=== PATIENT | female | born 1945 | race Caucasian/White ===

== ENCOUNTER 2017-02-04 15:35 | Inpatient (IN) | payer OTHER ==
[~2017-02-04] VITALS: Ht 149.9 cm; Wt 79.4 kg
[~2017-02-04 15:35] MED LIST: ACEBUTCAFT PO; ADVIL100 MG PO; ALBU90OI INH; ASPI325 PO; ASPI500 PO; ATEN25 PO; ATEN50 PO; ATOR40TA PO; BISA5EC PO; BUTASPCAF PO; CALCAVITD PO; CALCIUM DAILY; CARV6.25 PO; CLOP75 PO; CODBUTACEC PO; CODBUTASA PO; CODGUAEL PO; COLC.6 PO; Cipro500 MG PO; DESV50 PO; DEXL60CA3 PO; DIAZ5; DIAZ5 PO; ESTR2 PO; FAMO20 PO; FENT50TP TOP; FIORINAL-COD 31 EACH PO; FLUC150A PO; HYDR1TAB94 PO; IBUP600 PO; LEVFLO500 PO; LISI5 PO; LORA.5 PO; LORA1 PO; MEDR5 PO; METPRE4DP PO; METR500 PO; MIRALAX17 GM PO; MORP15ER PO; MORP30 PO; MORP30ER PO; MULVITMIND PO; OMEP20ER PO; OXYACE5T PO; OXYC5 PO; Omeprazole20 M1; PROG100 PO; Percocet 5-3251 EACH PO; Percocet 7.5-31 EACH PO; Prednisone20 MG PO; QUET100 PO; QUET200 PO; Senna8.6 MG PO; TRAM50 PO; Zofran Odt4 MG PO; Zofran Odt8 MG SL
[2017-02-09] MEDS ORDERED: Vitamin B Comple1 EA PO (16:07)
[2017-02-09] MEDS ORDERED: FIORINAL-COD 31 EACH PO (16:08)
[2017-02-12 05:04] LABS: BASOPHILS ABSOLUTE AUTO 0.05 K/mm3 (0.00-0.23); BASOPHILS PERCENT AUTO 0 % (0-2); EOSINOPHILS ABSOLUTE AUTO 0.23 K/mm3 (0.00-0.68); EOSINOPHILS PERCENT AUTO 2 % (0-6); Hematocrit 26.6 % (33.0-51.0); Hemoglobin 8.5 g/dL (11.5-16.0); IMMATURE GRAN ABSOLUTE AUTO 0.07 K/mm3 (0.00-0.10); IMMATURE GRAN PERCENT AUTO 1 % (0-1); LYMPHOCYTES ABSOLUTE AUTO 2.67 K/mm3 (0.84-5.20); LYMPHOCYTES PERCENT AUTO 19 % (21-46); MONOCYTES ABSOLUTE AUTO 1.33 K/mm3 (0.16-1.47); MONOCYTES PERCENT AUTO 9 % (4-13); Mean Corpuscular HGB 29.8 pg (26.0-34.0); Mean Corpuscular Volume 93 fL (80-100); NEUTROPHILS ABSOLUTE AUTO 9.88 K/mm3 (1.96-9.15); NEUTROPHILS PERCENT AUTO 69 % (41-73); Platelet Count 229 K/mm3 (150-400); RDW Coefficient Variation 15.6 % (11.7-14.2); RDW Standard Deviation 53.3 fL (35.1-46.3); Red Blood Cell Count 2.85 M/mm3 (3.80-5.20); White Blood Cell Count 14.23 K/mm3 (4.00-11.30)
[2017-02-12 05:39] LABS: Anion Gap 8 mmol/L (6-16); Blood Urea Nitrogen 18 mg/dL (8-24); CO2, Blood 25 mmol/L (21-32); Calcium, Blood 8.5 mg/dL (8.5-10.1); Chloride, Blood 102 mmol/L (98-108); Glomerular Filtration Rate >60 (60-); Glucose, Blood 134 mg/dL (70-99); Magnesium, Blood 1.6 mg/dL (1.6-2.4); Potassium, Blood 3.9 mmol/L (3.5-5.5); Sodium, Blood 135 mmol/L (136-145)
[2017-02-13 08:53] LABS: BASOPHILS ABSOLUTE AUTO 0.03 K/mm3 (0.00-0.23); BASOPHILS PERCENT AUTO 0 % (0-2); EOSINOPHILS ABSOLUTE AUTO 1.01 K/mm3 (0.00-0.68); EOSINOPHILS PERCENT AUTO 9 % (0-6); Hematocrit 25.6 % (33.0-51.0); Hemoglobin 8.5 g/dL (11.5-16.0); IMMATURE GRAN ABSOLUTE AUTO 0.05 K/mm3 (0.00-0.10); IMMATURE GRAN PERCENT AUTO 0 % (0-1); LYMPHOCYTES ABSOLUTE AUTO 2.37 K/mm3 (0.84-5.20); LYMPHOCYTES PERCENT AUTO 21 % (21-46); MONOCYTES ABSOLUTE AUTO 0.89 K/mm3 (0.16-1.47); MONOCYTES PERCENT AUTO 8 % (4-13); Mean Corpuscular HGB 30.4 pg (26.0-34.0); Mean Corpuscular HGB Conc 33.2 g/dL (31.5-36.5); Mean Corpuscular Volume 91 fL (80-100); Mean Platelet Volume 9.7 fL (9.1-12.4); NEUTROPHILS ABSOLUTE AUTO 7.04 K/mm3 (1.96-9.15); NEUTROPHILS PERCENT AUTO 62 % (41-73); Platelet Count 245 K/mm3 (150-400); RDW Coefficient Variation 15.4 % (11.7-14.2); RDW Standard Deviation 51.5 fL (35.1-46.3); White Blood Cell Count 11.39 K/mm3 (4.00-11.30)
[2017-02-13 09:07] LABS: Alanine Aminotransfer (ALT/SGP 10 U/L (12-78); Albumin/Globulin Ratio 0.9 (0.8-1.8); Alk Phos 81 U/L (50-136); Anion Gap 8 mmol/L (6-16); Aspartate Aminotrans (AST/SGOT 19 U/L (12-37); Bilirubin, Total 0.4 mg/dL (0.1-1.0); Blood Urea Nitrogen 26 mg/dL (8-24); Bun/Creatinine Ratio 28.9 (12.0-20.0); CO2, Blood 29 mmol/L (21-32); Calcium, Blood 9.3 mg/dL (8.5-10.1); Chloride, Blood 96 mmol/L (98-108); Globulin, Blood 3.4 g/dL (2.2-4.0); Glomerular Filtration Rate >60 (60-); Glucose, Blood 115 mg/dL (70-99); Sodium, Blood 133 mmol/L (136-145); Total Protein, Blood 6.4 g/dL (6.4-8.2)
[2017-02-15 06:08] LABS: Hematocrit 25.1 % (33.0-51.0); Hemoglobin 8.2 g/dL (11.5-16.0); Mean Corpuscular HGB 30.3 pg (26.0-34.0); Mean Corpuscular HGB Conc 32.7 g/dL (31.5-36.5); Mean Corpuscular Volume 93 fL (80-100); Mean Platelet Volume 9.8 fL (9.1-12.4); Platelet Count 313 K/mm3 (150-400); RDW Coefficient Variation 15.7 % (11.7-14.2); RDW Standard Deviation 52.9 fL (35.1-46.3); Red Blood Cell Count 2.71 M/mm3 (3.80-5.20); White Blood Cell Count 12.55 K/mm3 (4.00-11.30)
[2017-02-15 06:24] LABS: Anion Gap 7 mmol/L (6-16); Blood Urea Nitrogen 13 mg/dL (8-24); Bun/Creatinine Ratio 17.1 (12.0-20.0); CO2, Blood 29 mmol/L (21-32); Calcium, Blood 8.7 mg/dL (8.5-10.1); Chloride, Blood 97 mmol/L (98-108); Creatinine, Blood 0.76 mg/dL (0.40-1.00); Glomerular Filtration Rate >60 (60-); Glucose, Blood 121 mg/dL (70-99); Percent Saturation 16.2 % (15.0-50.0); Potassium, Blood 3.9 mmol/L (3.5-5.5); Sodium, Blood 133 mmol/L (136-145)
[2017-02-17] MEDS ORDERED: OXYC5 PO (11:11)
[2017-02-17] MEDS ORDERED: ENOX40I SC (11:12)
[2017-02-17] MEDS ORDERED: PROM12.5S PO (11:14)
== END 2017-02-17 13:53 | disposition home or self-care (01) | DRG 470 ==
LOC: SURS 02-11 09:53 → PRE IP 02-11 12:30 → SURS 02-11 17:45
PROVIDERS: Internal Medicine; Orthopaedic Surgery
PROC: 8E0YXBZ Computer Assisted Procedure of Lower Extremity (ICD-10-PCS; 2017-02-11)
PROC: 0SRB04A Replacement of Left Hip Joint with Ceramic on Polyethylene Synthetic Substitute, Uncemented, Open Approach (ICD-10-PCS; principal; 2017-02-11 12:30)
DX: M87.052 Idiopathic aseptic necrosis of left femur (principal); D63.8 Anemia in other chronic diseases classified elsewhere; E87.1 Hypo-osmolality and hyponatremia; E66.9 Obesity, unspecified; E03.9 Hypothyroidism, unspecified; F32.9 Major depressive disorder, single episode, unspecified; I10 Essential (primary) hypertension; I25.10 Atherosclerotic heart disease of native coronary artery without angina pectoris; M79.7 Fibromyalgia; G89.29 Other chronic pain; F41.9 Anxiety disorder, unspecified; M10.9 Gout, unspecified; K21.9 Gastro-esophageal reflux disease without esophagitis; K59.00 Constipation, unspecified; Z68.34 Body mass index [BMI] 34.0-34.9, adult; Z95.5 Presence of coronary angioplasty implant and graft; Z87.891 Personal history of nicotine dependence; Z88.8 Allergy status to other drugs, medicaments and biological substances; Z79.82 Long term (current) use of aspirin; Z79.899 Other long term (current) drug therapy; I25.2 Old myocardial infarction
CPT/HCPCS: 36415; 72170; 74000; 76705; 80048; 80053; 82728; 83540; 83550; 83690; 83735; 84443; 85025; 85027; 86850; 86900; 86901; 88300; 93005; 93010; 97110; 97116; 97161; 97165; 97530; 97535; C1713; C1776; G8978; G8979; G8987; G8988; G8989; J0171; J0690; J0735; J1100; J1170; J1650; J1885; J2250; J2405; J2550; J2710; J2765; J2795; J3010; J7050; J7120

== ENCOUNTER 2017-03-03 15:51 | Inpatient (IN) | payer OTHER ==
[~2017-03-03] VITALS: Ht 152.4 cm; Wt 77.2 kg
[~2017-03-03 15:51] MED LIST changes: +ENOX40I SC; +PROM12.5S PO; +Vitamin B Comple1 EA PO
[2017-03-03 18:10] LABS: BASOPHILS PERCENT AUTO 1 % (0-2); EOSINOPHILS ABSOLUTE AUTO 0.68 K/mm3 (0.00-0.68); EOSINOPHILS PERCENT AUTO 8 % (0-6); Hematocrit 28.5 % (33.0-51.0); Hemoglobin 8.8 g/dL (11.5-16.0); IMMATURE GRAN ABSOLUTE AUTO 0.01 K/mm3 (0.00-0.10); IMMATURE GRAN PERCENT AUTO 0 % (0-1); LYMPHOCYTES PERCENT AUTO 27 % (21-46); MONOCYTES ABSOLUTE AUTO 0.77 K/mm3 (0.16-1.47); MONOCYTES PERCENT AUTO 9 % (4-13); Mean Corpuscular HGB 29.3 pg (26.0-34.0); Mean Corpuscular HGB Conc 30.9 g/dL (31.5-36.5); Mean Corpuscular Volume 95 fL (80-100); Mean Platelet Volume 9.3 fL (9.1-12.4); NEUTROPHILS ABSOLUTE AUTO 4.68 K/mm3 (1.96-9.15); NEUTROPHILS PERCENT AUTO 55 % (41-73); Platelet Count 402 K/mm3 (150-400); RDW Coefficient Variation 15.7 % (11.7-14.2); RDW Standard Deviation 54.4 fL (35.1-46.3); White Blood Cell Count 8.54 K/mm3 (4.00-11.30)
[2017-03-03 18:27] LABS: Anion Gap 6 mmol/L (6-16); Blood Urea Nitrogen 15 mg/dL (8-24); Bun/Creatinine Ratio 21.6 (12.0-20.0); CO2, Blood 27 mmol/L (21-32); Calcium, Blood 9.5 mg/dL (8.5-10.1); Chloride, Blood 105 mmol/L (98-108); Creatinine, Blood 0.69 mg/dL (0.40-1.00); Glomerular Filtration Rate >60 (60-); Glucose, Blood 92 mg/dL (70-99); Potassium, Blood 4.2 mmol/L (3.5-5.5); Sodium, Blood 138 mmol/L (136-145)
[2017-03-03] MEDS ORDERED: SUCR1 PO (22:40)
[2017-03-03] MEDS ORDERED: Advil200 M1 PO (22:41)
[2017-03-04 04:31] LABS: BASOPHILS ABSOLUTE AUTO 0.04 K/mm3 (0.00-0.23); BASOPHILS PERCENT AUTO 1 % (0-2); EOSINOPHILS ABSOLUTE AUTO 0.53 K/mm3 (0.00-0.68); EOSINOPHILS PERCENT AUTO 6 % (0-6); Hematocrit 23.8 % (33.0-51.0); Hemoglobin 7.4 g/dL (11.5-16.0); IMMATURE GRAN ABSOLUTE AUTO 0.02 K/mm3 (0.00-0.10); IMMATURE GRAN PERCENT AUTO 0 % (0-1); LYMPHOCYTES ABSOLUTE AUTO 1.94 K/mm3 (0.84-5.20); LYMPHOCYTES PERCENT AUTO 24 % (21-46); MONOCYTES ABSOLUTE AUTO 0.63 K/mm3 (0.16-1.47); MONOCYTES PERCENT AUTO 8 % (4-13); Mean Corpuscular HGB 29.2 pg (26.0-34.0); Mean Corpuscular HGB Conc 31.1 g/dL (31.5-36.5); Mean Corpuscular Volume 94 fL (80-100); NEUTROPHILS ABSOLUTE AUTO 5.08 K/mm3 (1.96-9.15); NEUTROPHILS PERCENT AUTO 62 % (41-73); RDW Coefficient Variation 15.6 % (11.7-14.2); Red Blood Cell Count 2.53 M/mm3 (3.80-5.20); White Blood Cell Count 8.24 K/mm3 (4.00-11.30)
[2017-03-04 04:33] LABS: Mean Platelet Volume 10.2 fL (9.1-12.4); Platelet Count 289 K/mm3 (150-400)
[2017-03-04 04:49] LABS: Magnesium, Blood 1.8 mg/dL (1.6-2.4)
[2017-03-04 05:25] LABS: Anion Gap 9 mmol/L (6-16); Blood Urea Nitrogen 12 mg/dL (8-24); Bun/Creatinine Ratio 15.6 (12.0-20.0); CO2, Blood 25 mmol/L (21-32); Chloride, Blood 107 mmol/L (98-108); Creatinine, Blood 0.77 mg/dL (0.40-1.00); Glomerular Filtration Rate >60 (60-); Glucose, Blood 95 mg/dL (70-99); Potassium, Blood 4.3 mmol/L (3.5-5.5); Sodium, Blood 141 mmol/L (136-145)
[2017-03-04 05:28] LABS: Calcium, Blood 8.3 mg/dL (8.5-10.1)
[2017-03-05 13:24] LABS: Hemoglobin 9.2 g/dL (11.5-16.0)
[2017-03-06 06:43] LABS: BASOPHILS ABSOLUTE AUTO 0.02 K/mm3 (0.00-0.23); BASOPHILS PERCENT AUTO 0 % (0-2); EOSINOPHILS ABSOLUTE AUTO 0.04 K/mm3 (0.00-0.68); EOSINOPHILS PERCENT AUTO 1 % (0-6); Hematocrit 21.8 % (33.0-51.0); Hemoglobin 7.1 g/dL (11.5-16.0); IMMATURE GRAN ABSOLUTE AUTO 0.02 K/mm3 (0.00-0.10); IMMATURE GRAN PERCENT AUTO 0 % (0-1); LYMPHOCYTES ABSOLUTE AUTO 1.39 K/mm3 (0.84-5.20); LYMPHOCYTES PERCENT AUTO 17 % (21-46); MONOCYTES ABSOLUTE AUTO 0.96 K/mm3 (0.16-1.47); MONOCYTES PERCENT AUTO 12 % (4-13); Mean Corpuscular HGB 30.1 pg (26.0-34.0); Mean Corpuscular HGB Conc 32.6 g/dL (31.5-36.5); Mean Corpuscular Volume 92 fL (80-100); Mean Platelet Volume 9.3 fL (9.1-12.4); NEUTROPHILS ABSOLUTE AUTO 5.62 K/mm3 (1.96-9.15); NEUTROPHILS PERCENT AUTO 70 % (41-73); Platelet Count 262 K/mm3 (150-400); RDW Coefficient Variation 15.5 % (11.7-14.2); RDW Standard Deviation 52.2 fL (35.1-46.3); Red Blood Cell Count 2.36 M/mm3 (3.80-5.20); White Blood Cell Count 8.05 K/mm3 (4.00-11.30)
[2017-03-06 07:11] LABS: Creatinine, Blood 0.69 mg/dL (0.40-1.00); Vancomycin, Trough 7.5 ug/mL (5.0-10.0)
[2017-03-06 07:16] LABS: Anion Gap 8 mmol/L (6-16); Blood Urea Nitrogen 11 mg/dL (8-24); Bun/Creatinine Ratio 16.6 (12.0-20.0); CO2, Blood 24 mmol/L (21-32); Calcium, Blood 7.5 mg/dL (8.5-10.1); Chloride, Blood 106 mmol/L (98-108); Creatinine, Blood 0.66 mg/dL (0.40-1.00); Glomerular Filtration Rate >60 (60-); Glucose, Blood 132 mg/dL (70-99); Potassium, Blood 4.3 mmol/L (3.5-5.5); Sodium, Blood 138 mmol/L (136-145)
[2017-03-07 07:06] LABS: Hematocrit 30.1 % (33.0-51.0); Hemoglobin 9.9 g/dL (11.5-16.0); Mean Corpuscular HGB 29.6 pg (26.0-34.0); Mean Corpuscular HGB Conc 32.9 g/dL (31.5-36.5); Mean Corpuscular Volume 90 fL (80-100); Mean Platelet Volume 9.4 fL (9.1-12.4); Platelet Count 270 K/mm3 (150-400); RDW Coefficient Variation 15.9 % (11.7-14.2); RDW Standard Deviation 52.4 fL (35.1-46.3); Red Blood Cell Count 3.35 M/mm3 (3.80-5.20); White Blood Cell Count 8.37 K/mm3 (4.00-11.30)
[2017-03-08 07:34] LABS: BASOPHILS ABSOLUTE AUTO 0.08 K/mm3 (0.00-0.23); BASOPHILS PERCENT AUTO 1 % (0-2); EOSINOPHILS PERCENT AUTO 10 % (0-6); Hematocrit 30.4 % (33.0-51.0); Hemoglobin 9.8 g/dL (11.5-16.0); IMMATURE GRAN ABSOLUTE AUTO 0.03 K/mm3 (0.00-0.10); IMMATURE GRAN PERCENT AUTO 0 % (0-1); LYMPHOCYTES ABSOLUTE AUTO 2.56 K/mm3 (0.84-5.20); LYMPHOCYTES PERCENT AUTO 33 % (21-46); MONOCYTES ABSOLUTE AUTO 0.71 K/mm3 (0.16-1.47); MONOCYTES PERCENT AUTO 9 % (4-13); Mean Corpuscular HGB 29.4 pg (26.0-34.0); Mean Corpuscular HGB Conc 32.2 g/dL (31.5-36.5); Mean Corpuscular Volume 91 fL (80-100); Mean Platelet Volume 9.2 fL (9.1-12.4); NEUTROPHILS ABSOLUTE AUTO 3.48 K/mm3 (1.96-9.15); NEUTROPHILS PERCENT AUTO 46 % (41-73); Platelet Count 253 K/mm3 (150-400); RDW Coefficient Variation 15.6 % (11.7-14.2); Red Blood Cell Count 3.33 M/mm3 (3.80-5.20); White Blood Cell Count 7.66 K/mm3 (4.00-11.30)
[2017-03-08 07:48] LABS: Vancomycin, Trough 10.2 ug/mL (5.0-10.0)
[2017-03-09 05:00] LABS: Hematocrit 31.1 % (33.0-51.0); Hemoglobin 9.9 g/dL (11.5-16.0)
[2017-03-09] MEDS ORDERED: Milk Of Ma400 MG/5 M PO (10:29)
[2017-03-09] MEDS ORDERED: RIFA300 PO (10:30)
[2017-03-09] MEDS ORDERED: Ceftriaxone2 G1 IV (10:33)
[2017-03-09] MEDS ORDERED: Acidophilus La100 GM PO (10:35)
[2017-03-10] MEDS ORDERED: DIAZ5 PO (11:44)
[2017-03-10] MEDS ORDERED: Prilosec Otc20 MG PO (11:44)
[2017-03-10] MEDS ORDERED: ASCO500 PO (11:45)
== END 2017-03-09 14:45 | disposition home or self-care (01) | DRG 467 ==
LOC: ER 15:51 → SURS 17:42
PROVIDERS: Anesthesiology; Emergency Medicine; Internal Medicine; Orthopaedic Surgery
PROC: 0QB70ZZ Excision of Left Upper Femur, Open Approach (ICD-10-PCS; 2017-03-03)
PROC: 0SPB09Z Removal of Liner from Left Hip Joint, Open Approach (ICD-10-PCS; 2017-03-05)
PROC: 0SUE09Z Supplement Left Hip Joint, Acetabular Surface with Liner, Open Approach (ICD-10-PCS; 2017-03-05)
PROC: 0SPS0JZ Removal of Synthetic Substitute from Left Hip Joint, Femoral Surface, Open Approach (ICD-10-PCS; 2017-03-05)
PROC: 30233N1 Transfusion of Nonautologous Red Blood Cells into Peripheral Vein, Percutaneous Approach (ICD-10-PCS; 2017-03-05)
PROC: 0SRS03Z Replacement of Left Hip Joint, Femoral Surface with Ceramic Synthetic Substitute, Open Approach (ICD-10-PCS; principal; 2017-03-05 14:00)
DX: T84.52XA Infection and inflammatory reaction due to internal left hip prosthesis, initial encounter (principal); T81.32XA Disruption of internal operation (surgical) wound, not elsewhere classified, initial encounter; B95.61 Methicillin susceptible Staphylococcus aureus infection as the cause of diseases classified elsewhere; D63.8 Anemia in other chronic diseases classified elsewhere; I10 Essential (primary) hypertension; I25.10 Atherosclerotic heart disease of native coronary artery without angina pectoris; K21.9 Gastro-esophageal reflux disease without esophagitis; F32.9 Major depressive disorder, single episode, unspecified; E03.9 Hypothyroidism, unspecified; K59.00 Constipation, unspecified; M79.7 Fibromyalgia; G89.4 Chronic pain syndrome; E78.5 Hyperlipidemia, unspecified
CPT/HCPCS: 36415; 36430; 72170; 73502; 80048; 80202; 82565; 82947; 83735; 85014; 85018; 85025; 85027; 85651; 86140; 86850; 86900; 86901; 86923; 87070; 87075; 87077; 87147; 87186; 87205; 97110; 97116; 97161; 97165; 97530; 99285; C1776; G8978; G8979; G8987; G8988; G8989; J0171; J0330; J0690; J0696; J0735; J1100; J1170; J1885; J2060; J2250; J2270; J2370; J2405; J2710; J2795; J3010; J3370; J7030; J7050; J7120; P9016; Q0163

== ENCOUNTER 2017-03-10 10:10 | Day surgery (SDC) | payer OTHER ==
[~2017-03-10 10:10] MED LIST changes: +Acidophilus La100 GM PO; +Advil200 M1 PO; +Ceftriaxone2 G1 IV; +Milk Of Ma400 MG/5 M PO; +RIFA300 PO; +SUCR1 PO
[2017-03-10] MEDS ORDERED: Prilosec Otc20 MG PO (11:44)
[2017-03-10] MEDS ORDERED: DIAZ5 PO (11:44)
[2017-03-10] MEDS ORDERED: ASCO500 PO (11:45)
== END 2017-03-10 11:35 | disposition home or self-care (01) ==
LOC: ATC 10:10
DX: T81.31XA Disruption of external operation (surgical) wound, not elsewhere classified, initial encounter (principal); I10 Essential (primary) hypertension; K21.9 Gastro-esophageal reflux disease without esophagitis; I25.10 Atherosclerotic heart disease of native coronary artery without angina pectoris; Z89.622 Acquired absence of left hip joint
CPT/HCPCS: 96374; 99212; J0696

== ENCOUNTER 2017-03-11 00:28 | Day surgery (SDC) | payer OTHER ==
[~2017-03-11 00:28] MED LIST changes: +ASCO500 PO; +Prilosec Otc20 MG PO
== END 2017-03-11 11:50 | disposition home or self-care (01) ==
LOC: ATC 00:28
DX: T81.31XA Disruption of external operation (surgical) wound, not elsewhere classified, initial encounter (principal); I10 Essential (primary) hypertension; K21.9 Gastro-esophageal reflux disease without esophagitis; I25.10 Atherosclerotic heart disease of native coronary artery without angina pectoris; Z96.642 Presence of left artificial hip joint
CPT/HCPCS: 73700; 80053; 85025; 96374; 99211; 99284; J0696

== ENCOUNTER 2017-03-12 00:59 | Day surgery (SDC) | payer OTHER | END 2017-03-12 11:20 | disposition home or self-care (01) | LOC: ATC 00:59 | DX: T81.31XA Disruption of external operation (surgical) wound, not elsewhere classified, initial encounter (principal); Z96.642 Presence of left artificial hip joint; I10 Essential (primary) hypertension; K21.9 Gastro-esophageal reflux disease without esophagitis; I25.10 Atherosclerotic heart disease of native coronary artery without angina pectoris | CPT/HCPCS: 96374; J0696 ==

== ENCOUNTER 2017-03-13 00:31 | Day surgery (SDC) | payer OTHER | END 2017-03-13 11:06 | disposition home or self-care (01) | LOC: ATC 00:31 | DX: T81.31XA Disruption of external operation (surgical) wound, not elsewhere classified, initial encounter (principal); Z96.642 Presence of left artificial hip joint; I10 Essential (primary) hypertension; K21.9 Gastro-esophageal reflux disease without esophagitis; I25.10 Atherosclerotic heart disease of native coronary artery without angina pectoris | CPT/HCPCS: 96374; J0696 ==

== ENCOUNTER 2017-03-14 00:16 | Day surgery (SDC) | payer OTHER | END 2017-03-14 14:35 | disposition home or self-care (01) | LOC: ATC 00:16 | DX: T81.31XA Disruption of external operation (surgical) wound, not elsewhere classified, initial encounter (principal); Z96.642 Presence of left artificial hip joint; I10 Essential (primary) hypertension; K21.9 Gastro-esophageal reflux disease without esophagitis; I25.10 Atherosclerotic heart disease of native coronary artery without angina pectoris | CPT/HCPCS: 96365; J0696 ==

== ENCOUNTER 2017-03-15 00:13 | Day surgery (SDC) | payer OTHER | END 2017-03-15 11:03 | disposition home or self-care (01) | LOC: ATC 00:13 | DX: Z45.2 Encounter for adjustment and management of vascular access device (principal); T81.32XD Disruption of internal operation (surgical) wound, not elsewhere classified, subsequent encounter; Z88.8 Allergy status to other drugs, medicaments and biological substances; Z79.899 Other long term (current) drug therapy; Z79.82 Long term (current) use of aspirin; Z96.642 Presence of left artificial hip joint | CPT/HCPCS: 96374; J0696 ==

== ENCOUNTER 2017-03-16 00:12 | Day surgery (SDC) | payer OTHER | END 2017-03-16 11:00 | disposition home or self-care (01) | LOC: ATC 00:12 | DX: T81.31XA Disruption of external operation (surgical) wound, not elsewhere classified, initial encounter (principal); Z96.642 Presence of left artificial hip joint; I10 Essential (primary) hypertension; K21.9 Gastro-esophageal reflux disease without esophagitis; I25.10 Atherosclerotic heart disease of native coronary artery without angina pectoris | CPT/HCPCS: 96374; J0696 ==

== ENCOUNTER 2017-03-17 00:57 | Day surgery (SDC) | payer OTHER | END 2017-03-17 11:20 | disposition home or self-care (01) | LOC: ATC 00:57 | DX: T81.31XA Disruption of external operation (surgical) wound, not elsewhere classified, initial encounter (principal); I10 Essential (primary) hypertension; K21.9 Gastro-esophageal reflux disease without esophagitis; I25.10 Atherosclerotic heart disease of native coronary artery without angina pectoris; Z96.642 Presence of left artificial hip joint | CPT/HCPCS: 96374; 99212; J0696 ==

== ENCOUNTER 2017-03-18 01:02 | Day surgery (SDC) | payer OTHER | END 2017-03-18 11:50 | disposition home or self-care (01) | LOC: ATC 01:02 | DX: T81.31XA Disruption of external operation (surgical) wound, not elsewhere classified, initial encounter (principal); Z96.642 Presence of left artificial hip joint; I10 Essential (primary) hypertension; K21.9 Gastro-esophageal reflux disease without esophagitis; I25.10 Atherosclerotic heart disease of native coronary artery without angina pectoris | CPT/HCPCS: 96374; J0696 ==

== ENCOUNTER 2017-03-19 01:01 | Day surgery (SDC) | payer OTHER ==
[2017-03-20] MEDS ORDERED: TRAM50 PO ×2 (11:59→12:00)
== END 2017-03-19 11:07 | disposition home or self-care (01) ==
LOC: ATC 01:01
DX: T81.31XA Disruption of external operation (surgical) wound, not elsewhere classified, initial encounter (principal); Z96.642 Presence of left artificial hip joint; I10 Essential (primary) hypertension; K21.9 Gastro-esophageal reflux disease without esophagitis; I25.10 Atherosclerotic heart disease of native coronary artery without angina pectoris
CPT/HCPCS: 96374; J0696

== ENCOUNTER 2017-03-20 00:59 | Day surgery (SDC) | payer OTHER ==
[2017-03-20] MEDS ORDERED: TRAM50 PO ×2 (11:59→12:00)
== END 2017-03-20 11:23 | disposition home or self-care (01) ==
LOC: ATC 00:59
DX: T81.31XA Disruption of external operation (surgical) wound, not elsewhere classified, initial encounter (principal); I10 Essential (primary) hypertension; K21.9 Gastro-esophageal reflux disease without esophagitis; I25.10 Atherosclerotic heart disease of native coronary artery without angina pectoris; M19.90 Unspecified osteoarthritis, unspecified site; Z45.2 Encounter for adjustment and management of vascular access device; Z79.899 Other long term (current) drug therapy; Z79.82 Long term (current) use of aspirin; Z88.8 Allergy status to other drugs, medicaments and biological substances
CPT/HCPCS: 96374; 99211; J0696

== ENCOUNTER 2017-03-21 00:12 | Day surgery (SDC) | payer OTHER | END 2017-03-21 11:04 | disposition home or self-care (01) | LOC: ATC 00:12 | DX: T81.31XA Disruption of external operation (surgical) wound, not elsewhere classified, initial encounter (principal); Z96.642 Presence of left artificial hip joint; I10 Essential (primary) hypertension; K21.9 Gastro-esophageal reflux disease without esophagitis; I25.10 Atherosclerotic heart disease of native coronary artery without angina pectoris | CPT/HCPCS: 96374; J0696 ==

== ENCOUNTER 2017-03-22 00:32 | Day surgery (SDC) | payer OTHER | END 2017-03-22 11:07 | disposition home or self-care (01) | LOC: ATC 00:32 | DX: T81.31XA Disruption of external operation (surgical) wound, not elsewhere classified, initial encounter (principal); Z96.642 Presence of left artificial hip joint; I10 Essential (primary) hypertension; K21.9 Gastro-esophageal reflux disease without esophagitis; I25.10 Atherosclerotic heart disease of native coronary artery without angina pectoris | CPT/HCPCS: 96374; J0696 ==

== ENCOUNTER 2017-03-23 01:10 | Day surgery (SDC) | payer OTHER ==
[2017-03-23 11:52] LABS: BASOPHILS ABSOLUTE AUTO 0.12 K/mm3 (0.00-0.23); BASOPHILS PERCENT AUTO 2 % (0-2); EOSINOPHILS ABSOLUTE AUTO 0.45 K/mm3 (0.00-0.68); EOSINOPHILS PERCENT AUTO 7 % (0-6); Hematocrit 36.8 % (33.0-51.0); Hemoglobin 11.8 g/dL (11.5-16.0); IMMATURE GRAN ABSOLUTE AUTO 0.03 K/mm3 (0.00-0.10); IMMATURE GRAN PERCENT AUTO 0 % (0-1); LYMPHOCYTES ABSOLUTE AUTO 2.17 K/mm3 (0.84-5.20); LYMPHOCYTES PERCENT AUTO 32 % (21-46); MONOCYTES ABSOLUTE AUTO 0.81 K/mm3 (0.16-1.47); MONOCYTES PERCENT AUTO 12 % (4-13); Mean Corpuscular HGB Conc 32.1 g/dL (31.5-36.5); Mean Corpuscular Volume 90 fL (80-100); Mean Platelet Volume 9.4 fL (9.1-12.4); NEUTROPHILS ABSOLUTE AUTO 3.31 K/mm3 (1.96-9.15); NEUTROPHILS PERCENT AUTO 48 % (41-73); Platelet Count 305 K/mm3 (150-400); RDW Coefficient Variation 14.2 % (11.7-14.2); RDW Standard Deviation 47.1 fL (35.1-46.3); Red Blood Cell Count 4.07 M/mm3 (3.80-5.20); White Blood Cell Count 6.89 K/mm3 (4.00-11.30)
== END 2017-03-23 11:35 | disposition home or self-care (01) ==
LOC: ATC 01:10
PROVIDERS: Internal Medicine Infectious Disease
DX: T81.31XA Disruption of external operation (surgical) wound, not elsewhere classified, initial encounter (principal); Z96.642 Presence of left artificial hip joint; I10 Essential (primary) hypertension; K21.9 Gastro-esophageal reflux disease without esophagitis; I25.10 Atherosclerotic heart disease of native coronary artery without angina pectoris
CPT/HCPCS: 85025; 85651; 86140; 96374; J0696

== ENCOUNTER 2017-03-24 00:21 | Day surgery (SDC) | payer OTHER | END 2017-03-24 11:10 | disposition home or self-care (01) | LOC: ATC 00:21 | DX: T81.31XA Disruption of external operation (surgical) wound, not elsewhere classified, initial encounter (principal); Z96.642 Presence of left artificial hip joint | CPT/HCPCS: 96374; J0696 ==

== ENCOUNTER 2017-03-25 00:59 | Day surgery (SDC) | payer OTHER ==
[2017-03-26] MEDS ORDERED: ASPI325 PO (11:12)
[2017-03-26] MEDS ORDERED: QUET100 PO (11:13)
[2017-03-26] MEDS ORDERED: LISI5 PO (11:13)
[2017-03-26] MEDS ORDERED: ATEN25 PO (11:14)
[2017-03-26] MEDS ORDERED: Vitamin B Comple1 EA PO (11:14)
[2017-03-26] MEDS ORDERED: OXYC5 PO (11:15)
[2017-03-26] MEDS ORDERED: Advil200 M1 PO (11:15)
[2017-03-26] MEDS ORDERED: Milk Of Ma400 MG/5 M PO (11:16)
[2017-03-26] MEDS ORDERED: RIFA300 PO (11:17)
[2017-03-26] MEDS ORDERED: Rocephin 1g1 G/50 ML IV (11:19)
[2017-03-26] MEDS ORDERED: Acidophilus La100 GM PO (11:20)
[2017-03-26] MEDS ORDERED: Prilosec Otc20 MG PO (11:20)
[2017-03-26] MEDS ORDERED: DIAZ5 PO (11:20)
[2017-03-26] MEDS ORDERED: TRAM50 PO (11:21)
[2017-03-26] MEDS ORDERED: ASCO500 (11:21)
[2017-03-26] MEDS ORDERED: MELA3 PO (11:22)
== END 2017-03-25 11:32 | disposition home or self-care (01) ==
LOC: ATC 00:59
DX: T81.31XA Disruption of external operation (surgical) wound, not elsewhere classified, initial encounter (principal)
CPT/HCPCS: 96374; J0696

== ENCOUNTER 2017-03-26 00:38 | Day surgery (SDC) | payer OTHER ==
[2017-03-26] MEDS ORDERED: ASPI325 PO (11:12)
[2017-03-26] MEDS ORDERED: QUET100 PO (11:13)
[2017-03-26] MEDS ORDERED: LISI5 PO (11:13)
[2017-03-26] MEDS ORDERED: ATEN25 PO (11:14)
[2017-03-26] MEDS ORDERED: Vitamin B Comple1 EA PO (11:14)
[2017-03-26] MEDS ORDERED: OXYC5 PO (11:15)
[2017-03-26] MEDS ORDERED: Advil200 M1 PO (11:15)
[2017-03-26] MEDS ORDERED: Milk Of Ma400 MG/5 M PO (11:16)
[2017-03-26] MEDS ORDERED: RIFA300 PO (11:17)
[2017-03-26] MEDS ORDERED: Rocephin 1g1 G/50 ML IV (11:19)
[2017-03-26] MEDS ORDERED: Acidophilus La100 GM PO (11:20)
[2017-03-26] MEDS ORDERED: Prilosec Otc20 MG PO (11:20)
[2017-03-26] MEDS ORDERED: DIAZ5 PO (11:20)
[2017-03-26] MEDS ORDERED: TRAM50 PO (11:21)
[2017-03-26] MEDS ORDERED: ASCO500 (11:21)
[2017-03-26] MEDS ORDERED: MELA3 PO (11:22)
== END 2017-03-26 11:02 | disposition home or self-care (01) ==
LOC: ATC 00:38
DX: T81.31XA Disruption of external operation (surgical) wound, not elsewhere classified, initial encounter (principal); I10 Essential (primary) hypertension; I25.10 Atherosclerotic heart disease of native coronary artery without angina pectoris; K21.9 Gastro-esophageal reflux disease without esophagitis; M19.90 Unspecified osteoarthritis, unspecified site; Z79.82 Long term (current) use of aspirin; Z79.899 Other long term (current) drug therapy; Z88.8 Allergy status to other drugs, medicaments and biological substances
CPT/HCPCS: 96374; J0696

== ENCOUNTER 2017-03-27 01:00 | Day surgery (SDC) | payer OTHER ==
[~2017-03-27 01:00] MED LIST changes: +ASCO500; +MELA3 PO; +Rocephin 1g1 G/50 ML IV
== END 2017-03-27 11:10 | disposition home or self-care (01) ==
LOC: ATC 01:00
DX: T81.31XA Disruption of external operation (surgical) wound, not elsewhere classified, initial encounter (principal); I10 Essential (primary) hypertension; Z88.8 Allergy status to other drugs, medicaments and biological substances; Z79.899 Other long term (current) drug therapy; Z79.82 Long term (current) use of aspirin
CPT/HCPCS: 96374; J0696

== ENCOUNTER 2017-03-28 00:33 | Day surgery (SDC) | payer OTHER ==
[2017-03-29] MEDS ORDERED: Advil200 M1 PO (11:14)
[2017-03-29] MEDS ORDERED: LOPE2C PO (11:17)
== END 2017-03-28 11:02 | disposition home or self-care (01) ==
LOC: ATC 00:33
DX: T81.31XA Disruption of external operation (surgical) wound, not elsewhere classified, initial encounter (principal); I10 Essential (primary) hypertension; I25.10 Atherosclerotic heart disease of native coronary artery without angina pectoris; K21.9 Gastro-esophageal reflux disease without esophagitis; M19.90 Unspecified osteoarthritis, unspecified site; Z79.899 Other long term (current) drug therapy; Z88.8 Allergy status to other drugs, medicaments and biological substances
CPT/HCPCS: 96374; J0696

== ENCOUNTER 2017-03-29 00:29 | Day surgery (SDC) | payer OTHER ==
[2017-03-29] MEDS ORDERED: Advil200 M1 PO (11:14)
[2017-03-29] MEDS ORDERED: LOPE2C PO (11:17)
== END 2017-03-29 11:17 | disposition home or self-care (01) ==
LOC: ATC 00:29
DX: T81.31XA Disruption of external operation (surgical) wound, not elsewhere classified, initial encounter (principal); Z96.642 Presence of left artificial hip joint
CPT/HCPCS: 96374; J0696

== ENCOUNTER 2017-03-30 00:50 | Day surgery (SDC) | payer OTHER ==
[~2017-03-30 00:50] MED LIST changes: +LOPE2C PO
== END 2017-03-30 22:58 | disposition home or self-care (01) ==
LOC: ATC 00:50
DX: T81.31XA Disruption of external operation (surgical) wound, not elsewhere classified, initial encounter (principal); Z96.642 Presence of left artificial hip joint
CPT/HCPCS: J0696

== ENCOUNTER 2017-03-31 00:42 | Day surgery (SDC) | payer OTHER | END 2017-03-31 11:00 | disposition home or self-care (01) | LOC: ATC 00:42 | DX: T81.31XA Disruption of external operation (surgical) wound, not elsewhere classified, initial encounter (principal); Z96.642 Presence of left artificial hip joint; I10 Essential (primary) hypertension; I25.10 Atherosclerotic heart disease of native coronary artery without angina pectoris; K21.9 Gastro-esophageal reflux disease without esophagitis | CPT/HCPCS: 96374; J0696 ==

== ENCOUNTER 2017-04-01 00:23 | Day surgery (SDC) | payer OTHER | END 2017-04-01 11:09 | disposition home or self-care (01) | LOC: ATC 00:23 | DX: T81.31XA Disruption of external operation (surgical) wound, not elsewhere classified, initial encounter (principal); Z96.642 Presence of left artificial hip joint | CPT/HCPCS: 96374; J0696 ==

== ENCOUNTER 2017-04-02 00:44 | Day surgery (SDC) | payer OTHER ==
[2017-04-03] MEDS ORDERED: LOPE2C PO (11:43)
== END 2017-04-02 11:22 | disposition home or self-care (01) ==
LOC: ATC 00:44
DX: T81.31XA Disruption of external operation (surgical) wound, not elsewhere classified, initial encounter (principal); Z96.642 Presence of left artificial hip joint; I10 Essential (primary) hypertension; K21.9 Gastro-esophageal reflux disease without esophagitis; I25.10 Atherosclerotic heart disease of native coronary artery without angina pectoris
CPT/HCPCS: 96374; J0696

== ENCOUNTER 2017-04-03 01:04 | Day surgery (SDC) | payer OTHER ==
[2017-04-03] MEDS ORDERED: LOPE2C PO (11:43)
== END 2017-04-03 11:25 | disposition home or self-care (01) ==
LOC: ATC 01:04
DX: T81.31XA Disruption of external operation (surgical) wound, not elsewhere classified, initial encounter (principal); Z96.642 Presence of left artificial hip joint
CPT/HCPCS: 96374; J0696

== ENCOUNTER 2017-04-04 00:09 | Day surgery (SDC) | payer OTHER | END 2017-04-04 11:30 | disposition home or self-care (01) | LOC: ATC 00:09 | DX: T81.31XA Disruption of external operation (surgical) wound, not elsewhere classified, initial encounter (principal); Z96.642 Presence of left artificial hip joint; I10 Essential (primary) hypertension; K21.9 Gastro-esophageal reflux disease without esophagitis; I25.10 Atherosclerotic heart disease of native coronary artery without angina pectoris | CPT/HCPCS: 96374; J0696 ==

== ENCOUNTER 2017-04-05 00:19 | Day surgery (SDC) | payer OTHER | END 2017-04-05 11:05 | disposition home or self-care (01) | LOC: ATC 00:19 | DX: T81.31XA Disruption of external operation (surgical) wound, not elsewhere classified, initial encounter (principal); I10 Essential (primary) hypertension; K21.9 Gastro-esophageal reflux disease without esophagitis; I25.10 Atherosclerotic heart disease of native coronary artery without angina pectoris; Z96.642 Presence of left artificial hip joint | CPT/HCPCS: 96374; J0696 ==

== ENCOUNTER 2017-04-06 00:55 | Day surgery (SDC) | payer OTHER | END 2017-04-06 11:14 | disposition home or self-care (01) | LOC: ATC 00:55 | DX: T81.31XA Disruption of external operation (surgical) wound, not elsewhere classified, initial encounter (principal); Z96.642 Presence of left artificial hip joint; I10 Essential (primary) hypertension; K21.9 Gastro-esophageal reflux disease without esophagitis; I25.10 Atherosclerotic heart disease of native coronary artery without angina pectoris; Z79.82 Long term (current) use of aspirin | CPT/HCPCS: 96374; J0696 ==

== ENCOUNTER 2017-04-07 00:27 | Day surgery (SDC) | payer OTHER | END 2017-04-07 11:13 | disposition home or self-care (01) | LOC: ATC 00:27 | DX: T81.31XA Disruption of external operation (surgical) wound, not elsewhere classified, initial encounter (principal); I10 Essential (primary) hypertension; K21.9 Gastro-esophageal reflux disease without esophagitis; I25.10 Atherosclerotic heart disease of native coronary artery without angina pectoris | CPT/HCPCS: 85651; 86140; 96374; J0696 ==

== ENCOUNTER 2017-04-08 00:29 | Day surgery (SDC) | payer OTHER | END 2017-04-08 14:30 | disposition home or self-care (01) | LOC: ATC 00:29 | DX: T84.52XD Infection and inflammatory reaction due to internal left hip prosthesis, subsequent encounter (principal) | CPT/HCPCS: 96374; J0696 ==

== ENCOUNTER 2017-04-09 01:02 | Day surgery (SDC) | payer OTHER | END 2017-04-09 11:04 | disposition home or self-care (01) | LOC: ATC 01:02 | DX: T81.31XA Disruption of external operation (surgical) wound, not elsewhere classified, initial encounter (principal); Z96.642 Presence of left artificial hip joint; I10 Essential (primary) hypertension; K21.9 Gastro-esophageal reflux disease without esophagitis; I25.10 Atherosclerotic heart disease of native coronary artery without angina pectoris | CPT/HCPCS: 96374; J0696 ==

== ENCOUNTER 2017-04-10 00:39 | Day surgery (SDC) | END 2017-04-10 11:21 | disposition home or self-care (01) ==

== ENCOUNTER 2017-04-11 00:46 | Day surgery (SDC) | END 2017-04-11 14:51 | disposition home or self-care (01) ==

== ENCOUNTER 2017-04-12 00:41 | Day surgery (SDC) | payer OTHER | END 2017-04-12 11:05 | disposition home or self-care (01) | LOC: ATC 00:41 | DX: T81.31XA Disruption of external operation (surgical) wound, not elsewhere classified, initial encounter (principal); Z96.642 Presence of left artificial hip joint; I10 Essential (primary) hypertension; I25.10 Atherosclerotic heart disease of native coronary artery without angina pectoris; K21.9 Gastro-esophageal reflux disease without esophagitis | CPT/HCPCS: 96374; J0696 ==

== ENCOUNTER 2017-04-13 00:11 | Day surgery (SDC) | payer OTHER | END 2017-04-13 14:42 | disposition home or self-care (01) | LOC: ATC 00:11 | DX: T81.31XA Disruption of external operation (surgical) wound, not elsewhere classified, initial encounter (principal); Z96.642 Presence of left artificial hip joint; I10 Essential (primary) hypertension; K21.9 Gastro-esophageal reflux disease without esophagitis; I25.10 Atherosclerotic heart disease of native coronary artery without angina pectoris | CPT/HCPCS: 96374; J0696 ==

== ENCOUNTER 2017-04-14 00:23 | Day surgery (SDC) | payer OTHER | END 2017-04-14 11:06 | disposition home or self-care (01) | LOC: ATC 00:23 | DX: T81.31XA Disruption of external operation (surgical) wound, not elsewhere classified, initial encounter (principal); I10 Essential (primary) hypertension; K21.9 Gastro-esophageal reflux disease without esophagitis; I25.10 Atherosclerotic heart disease of native coronary artery without angina pectoris | CPT/HCPCS: 96374; J0696 ==

== ENCOUNTER 2017-04-15 01:11 | Day surgery (SDC) | payer OTHER | END 2017-04-15 11:15 | disposition home or self-care (01) | LOC: ATC 01:11 | DX: T81.31XA Disruption of external operation (surgical) wound, not elsewhere classified, initial encounter (principal); Z96.642 Presence of left artificial hip joint; I10 Essential (primary) hypertension; K21.9 Gastro-esophageal reflux disease without esophagitis; I25.10 Atherosclerotic heart disease of native coronary artery without angina pectoris | CPT/HCPCS: 96374; J0696 ==

== ENCOUNTER 2017-04-16 00:16 | Day surgery (SDC) | payer OTHER | END 2017-04-16 13:53 | disposition home or self-care (01) | LOC: ATC 00:16 | DX: T81.31XA Disruption of external operation (surgical) wound, not elsewhere classified, initial encounter (principal); I10 Essential (primary) hypertension; K21.9 Gastro-esophageal reflux disease without esophagitis; Z96.642 Presence of left artificial hip joint | CPT/HCPCS: 96374; J0696 ==

== ENCOUNTER 2017-04-17 00:19 | Day surgery (SDC) | payer OTHER | END 2017-04-17 11:05 | disposition home or self-care (01) | LOC: ATC 00:19 | DX: T81.31XA Disruption of external operation (surgical) wound, not elsewhere classified, initial encounter (principal); Z96.642 Presence of left artificial hip joint; I10 Essential (primary) hypertension; K21.9 Gastro-esophageal reflux disease without esophagitis; I25.10 Atherosclerotic heart disease of native coronary artery without angina pectoris | CPT/HCPCS: 96374; J0696 ==

== ENCOUNTER 2017-04-18 07:14 | Day surgery (SDC) | payer OTHER | END 2017-04-18 11:21 | disposition home or self-care (01) | LOC: ATC 07:14 | DX: T81.31XA Disruption of external operation (surgical) wound, not elsewhere classified, initial encounter (principal); Z96.642 Presence of left artificial hip joint; I10 Essential (primary) hypertension; I25.10 Atherosclerotic heart disease of native coronary artery without angina pectoris | CPT/HCPCS: 96365; J0696 ==

== ENCOUNTER 2017-04-19 00:40 | Day surgery (SDC) | payer OTHER | END 2017-04-19 11:05 | disposition home or self-care (01) | LOC: ATC 00:40 | DX: T81.31XA Disruption of external operation (surgical) wound, not elsewhere classified, initial encounter (principal); I10 Essential (primary) hypertension; K21.9 Gastro-esophageal reflux disease without esophagitis; I25.10 Atherosclerotic heart disease of native coronary artery without angina pectoris | CPT/HCPCS: 96374; J0696 ==

== ENCOUNTER 2017-04-20 03:36 | Day surgery (SDC) | payer OTHER | END 2017-04-20 11:30 | disposition home or self-care (01) | LOC: ATC 03:36 | DX: T81.31XA Disruption of external operation (surgical) wound, not elsewhere classified, initial encounter (principal); Z96.642 Presence of left artificial hip joint; I10 Essential (primary) hypertension; K21.9 Gastro-esophageal reflux disease without esophagitis; I25.10 Atherosclerotic heart disease of native coronary artery without angina pectoris | CPT/HCPCS: 96374; J0696 ==

== ENCOUNTER → 2018-03-17 | Outpatient (CLI) | payer OTHER ==
[2018-03-17 17:38] LABS: BASOPHILS ABSOLUTE AUTO 0.13 K/mm3 (0.00-0.23); BASOPHILS PERCENT AUTO 1 % (0-2); EOSINOPHILS ABSOLUTE AUTO 0.49 K/mm3 (0.00-0.68); EOSINOPHILS PERCENT AUTO 5 % (0-6); Hematocrit 40.7 % (33.0-51.0); Hemoglobin 13.6 g/dL (11.5-16.0); IMMATURE GRAN ABSOLUTE AUTO 0.02 K/mm3 (0.00-0.10); IMMATURE GRAN PERCENT AUTO 0 % (0-1); LYMPHOCYTES PERCENT AUTO 31 % (21-46); MONOCYTES ABSOLUTE AUTO 0.81 K/mm3 (0.16-1.47); MONOCYTES PERCENT AUTO 9 % (4-13); Mean Corpuscular HGB 30.1 pg (26.0-34.0); Mean Corpuscular HGB Conc 33.4 g/dL (31.5-36.5); Mean Corpuscular Volume 90 fL (80-100); Mean Platelet Volume 10.1 fL (9.1-12.4); NEUTROPHILS ABSOLUTE AUTO 4.95 K/mm3 (1.96-9.15); NEUTROPHILS PERCENT AUTO 53 % (41-73); Platelet Count 254 K/mm3 (150-400); RDW Coefficient Variation 14.5 % (11.7-14.2); RDW Standard Deviation 47.5 fL (35.1-46.3); Red Blood Cell Count 4.52 M/mm3 (3.80-5.20)
[2018-03-17 17:48] LABS: Bacteria Not Seen /hpf; Red Blood Cells, Urine 0-2 /hpf (0-2); Squamous Epithelial Cells Rare /hpf (Few); White Blood Cells, Urine Not Seen /hpf (0-5)
[2018-03-17 18:04] LABS: Alanine Aminotransfer (ALT/SGP 26 U/L (12-78); Albumin, Blood 3.8 g/dL (3.4-5.0); Albumin/Globulin Ratio 1.2 (0.8-1.8); Alk Phos 123 U/L (40-126); Anion Gap 11 mmol/L (6-16); Aspartate Aminotrans (AST/SGOT 21 U/L (12-37); Bilirubin, Total 0.1 mg/dL (0.1-1.0); Blood Urea Nitrogen 16 mg/dL (8-24); Bun/Creatinine Ratio 21.6 (12.0-20.0); CO2, Blood 23 mmol/L (21-32); Calcium, Blood 9.5 mg/dL (8.5-10.1); Chloride, Blood 101 mmol/L (98-108); Creatinine, Blood 0.74 mg/dL (0.40-1.00); Globulin, Blood 3.1 g/dL (2.2-4.0); Glomerular Filtration Rate >60 (60-); Glucose, Blood 90 mg/dL (70-99); Potassium, Blood 4.6 mmol/L (3.5-5.5); Sodium, Blood 135 mmol/L (136-145); Thyroid Stimulating Hormone 2.109 uIU/mL (0.360-4.800); Total Protein, Blood 6.9 g/dL (6.4-8.2)
== END | disposition home or self-care (01) ==
LOC: LAB EV 17:33 → LAB SHORT 17:33
PROVIDERS: Physician Assistant
DX: R30.0 Dysuria (principal); R53.83 Other fatigue
CPT/HCPCS: 80053; 81015; 84443; 85025; 87086

== ENCOUNTER 2018-09-22 11:37 | Day surgery (SDC) | payer OTHER ==
[~2018-09-22] VITALS: Ht 152.4 cm; Wt 84.0 kg
== END 2018-09-22 12:53 | disposition home or self-care (01) ==
LOC: ORSCSDS 11:37
PROVIDERS: Anesthesiology
PROC: 3E0R33Z Introduction of Anti-inflammatory into Spinal Canal, Percutaneous Approach (ICD-10-PCS; principal; 2018-09-22 12:30)
DX: M54.16 Radiculopathy, lumbar region (principal); M48.061 Spinal stenosis, lumbar region without neurogenic claudication; I10 Essential (primary) hypertension; F41.8 Other specified anxiety disorders; E66.9 Obesity, unspecified; Z68.35 Body mass index [BMI] 35.0-35.9, adult; Z79.82 Long term (current) use of aspirin; Z79.899 Other long term (current) drug therapy
CPT/HCPCS: J1040

== ENCOUNTER → 2019-08-10 | Outpatient (CLI) | payer OTHER | END | disposition home or self-care (01) | LOC: LAB SHORT 15:47 → LAB 15:47 | DX: R30.0 Dysuria (principal) | CPT/HCPCS: 87086 ==

== ENCOUNTER 2019-09-22 10:10 | Day surgery (SDC) | payer OTHER ==
[~2019-09-22] VITALS: Ht 152.4 cm; Wt 82.3 kg
== END 2019-09-22 12:00 | disposition home or self-care (01) ==
LOC: ORSCSDS 10:10
PROVIDERS: Anesthesiology
PROC: 3E0R33Z Introduction of Anti-inflammatory into Spinal Canal, Percutaneous Approach (ICD-10-PCS; principal; 2019-09-22 11:15)
DX: M51.16 Intervertebral disc disorders with radiculopathy, lumbar region (principal); I10 Essential (primary) hypertension; F41.8 Other specified anxiety disorders; E66.9 Obesity, unspecified; Z68.35 Body mass index [BMI] 35.0-35.9, adult; F17.210 Nicotine dependence, cigarettes, uncomplicated; Z79.899 Other long term (current) drug therapy
CPT/HCPCS: J1040

== ENCOUNTER → 2022-06-30 | Outpatient (CLI) | payer OTHER | END | disposition home or self-care (01) | LOC: LAB 14:30 → LAB SHORT 14:30 | DX: N30.00 Acute cystitis without hematuria (principal) | CPT/HCPCS: 87086; 87147 ==

== ENCOUNTER 2022-10-28 07:17 | Day surgery (SDC) | payer OTHER ==
[~2022-10-28] VITALS: Ht 152.4 cm; Wt 85.7 kg
[2022-10-28] VITALS (15 sets, daily range): BP systolic 127–174; BP diastolic 72–133
[~2022-10-28 07:17] MED LIST changes: -ASCO500; +BUTALB-ACETAMI1 EAC6 PO; +CLOBETASOL EMOL15 G1; +LATA.005SO BOTHEYES
--- NOTE | 2022-10-28 07:52 | NUR ---
CALL LIGHT IN REACH.
--- NOTE | 2022-10-28 10:34 | NUR ---
PT RETURNED TO RECOVERY ROOM IN BED. BILAT RADIAL AND BILAT FEMORAL ARTERIES SOFT NON-TENDER WITH NO HEMATOMA, NO PULSATILE BLEEDING AND INTACT DRESSINGS. PT DENIES CHEST PAIN. CALL LIGHT IN REACH. BILAT FEET WARM/PINK WITH DOPPLER PT PULSES.
--- NOTE | 2022-10-28 11:05 | NUR ---
PT'S EYES CLOSED; NO SIGNS OF DISTRESS. PT'S BREATHING EVEN/UNLABORED. PT EASILY AWAKENED.
--- NOTE | 2022-10-28 11:45 | NUR ---
PT IS SITTING UP EATING AND DRINKING COFFEE. FULL REPROT PROVIDED JOMAR CAVANAUGH TO ASSUME CARE OF PT IN RECOVERY ROOM.
--- NOTE | 2022-10-28 11:59 | NUR ---
ASSUMED CARE OF PATIENT. 4 ACCESS SITES C/D/I SOFT/NONTENDER, NO EVIDENCE OF BLEEDING, SOME BRUISING NOTED. WILL CONTINUE TO MONITOR. PATIENT SITTING UP IN BED TOLERATING PO INTAKE WELL. VSS ON RA
--- NOTE | 2022-10-28 12:31 | NUR ---
PATIENT VOIDING SPONTANEOUSLY WITHOUT DIFFICULTY USING PUREWICK. 4 ACCESS SITES WITH TEGADERM C/D/I SOFT/NONTENDER, WITH SOME BRUISING NOTED. WILL CONTINUE TO MONITOR. VSS ON RA
--- NOTE | 2022-10-28 13:30 | NUR ---
PATIENT VOIDING USING PUREWICK WITHOUT DIFFICULTY. 4 SITES C/D/I SOFT/NONTENDER, NO EVIDENCE OF BLEEDING. PATIENT DENYING ANY PAIN AT ACCESS SITES. VSS ON RA. PATIENT TOELRATING PO INTAKE WELL.
--- NOTE | 2022-10-28 13:50 | NUR ---
MD PRESENT AT BEDSIDE AND DISCUSSED WITH PATIENT PLANS FOR NEXT PROCEDURE. ACCESS SITES C/D/I SOFT/NONTENDER, NO EVIDENCE OF HEMATOMA. VSS ON RA. PATIENT DENIES ANY CP OR PAIN AT ACCESS SITES.
--- NOTE | 2022-10-28 14:25 | NUR ---
PATIENT DISCHARGED HOME AT THIS TIME. DISCHARGE PAPERWORK AND PATIENT BELONGINGS LEFT WITH PATIENT. PIV REMOVED WITHOUT DIFFICULTY, CATHETER INTACT. DISCHARGE INSTRUCTIONS REVIEWED WITH PATIENT, ALL QUESTIONS WERE ANSWERED. RADIAL, ULNAR AND FEMORAL SITES C/D/I SOFT/NONTENDER, WITH SOME BRUISING NOTED. NO EVIDENCE OF BLEEDING. VSS ON RA. PATIENT WHEELED TO HOSPITAL ENTRANCE AND DAUGHTER ABLE TO PROVIDE TRANSPORTATION HOME.
== END 2022-10-28 14:25 | disposition home or self-care (01) ==
LOC: MHTC 07:17
DX: I25.10 Atherosclerotic heart disease of native coronary artery without angina pectoris (principal); I25.2 Old myocardial infarction; Z95.5 Presence of coronary angioplasty implant and graft; I10 Essential (primary) hypertension; E78.5 Hyperlipidemia, unspecified; K21.9 Gastro-esophageal reflux disease without esophagitis; E66.9 Obesity, unspecified; Z68.36 Body mass index [BMI] 36.0-36.9, adult; Z87.891 Personal history of nicotine dependence; Z88.8 Allergy status to other drugs, medicaments and biological substances; Z79.899 Other long term (current) drug therapy
CPT/HCPCS: 76937; 93454; 99152; 99153; A9270; C1769; C1894; J1644; J2250; J3010; J7030; J7050; Q9967

== ENCOUNTER 2023-01-19 11:09 | Day surgery (SDC) | payer OTHER ==
[~2023-01-19] VITALS: Ht 152.4 cm; Wt 85.3 kg
[2023-01-19] VITALS (23 sets, daily range): BP systolic 92–164; BP diastolic 62–130
--- NOTE | 2023-01-19 14:33 | NUR ---
DR SEE AT BEDSIDE TO TALK WITH PT ABOUT CONSIDERATION OF DOING PROCEDURE WITHOUT ROBOTIC ASSISTANCE. PT AND DR SEE AGREED TO CONTINUE WITH PROCEDURE WITHOUT ROBOTIC ASSISTANCE.
--- NOTE | 2023-01-19 17:35 | NUR ---
PT TELLS ME SHE USED MS CONTIN FOR MANY YEARS AND SHE WONDERS IF THAT IS WHY HER PAIN NEVER GETS BETTER MEDICATING PRESCRIBED
--- NOTE | 2023-01-19 19:00 | NUR ---
PT ARRIVED TO THE ROOM FROM PACU AT 1815. PT ALERT AND ORIENTED. PT COMPLAINING OF 10/10 PAIN UPON ARRIVAL TO THE ROOM. PT PROVIDED WITH CALL LIGHT AND EDUCATED TO USE. PT EDUCATED ABOUT PAIN MANAGEMENT AND PROVIDED WITH PAIN MEDCIATION.
--- NOTE | 2023-01-19 20:12 | NUR ---
SHIFT SUMMARY PT IS POD#0 FROM R TKA WITH DR. SEE. PAIN MANAGMENT HAS BEEN AN ISSUE SINCE SHE ARRIVED, PAIN IS NOW 9/10 IMPROVED FROM 10/10. BEDSIDE REPORT GIVEN TO OLIMPIA CAVANAUGH.
[2023-01-20 00:55] VITALS: BP 108/58
[2023-01-20 03:40] VITALS: BP 129/89
[2023-01-20 03:41] VITALS: BP 129/89
[2023-01-20 03:46] LABS: BASOPHILS ABSOLUTE AUTO 0.08 K/mm3 (0.00-0.23); BASOPHILS PERCENT AUTO 1 % (0-2); EOSINOPHILS ABSOLUTE AUTO 0.39 K/mm3 (0.00-0.68); EOSINOPHILS PERCENT AUTO 3 % (0-6); Hematocrit 35.2 % (33.0-51.0); Hemoglobin 11.3 g/dL (11.5-16.0); IMMATURE GRAN ABSOLUTE AUTO 0.05 K/mm3 (0.00-0.10); IMMATURE GRAN PERCENT AUTO 0 % (0-1); LYMPHOCYTES ABSOLUTE AUTO 1.51 K/mm3 (0.84-5.20); LYMPHOCYTES PERCENT AUTO 13 % (21-46); MONOCYTES ABSOLUTE AUTO 0.96 K/mm3 (0.16-1.47); MONOCYTES PERCENT AUTO 8 % (4-13); Mean Corpuscular HGB 30.1 pg (26.0-34.0); Mean Corpuscular HGB Conc 32.1 g/dL (31.5-36.5); Mean Corpuscular Volume 94 fL (80-100); Mean Platelet Volume 9.5 fL (9.1-12.4); NEUTROPHILS PERCENT AUTO 75 % (41-73); Platelet Count 183 K/mm3 (150-400); RDW Coefficient Variation 13.5 % (11.7-14.2); RDW Standard Deviation 46.6 fL (35.1-46.3); Red Blood Cell Count 3.75 M/mm3 (3.80-5.20); White Blood Cell Count 12.09 K/mm3 (4.00-11.30)
[2023-01-20 04:13] LABS: Bun/Creatinine Ratio 30.1 (12.0-20.0); Calcium, Blood 8.2 mg/dL (8.5-10.1); Creatinine, Blood 0.63 mg/dL (0.40-1.00); Potassium, Blood 4.1 mmol/L (3.5-5.5)
--- NOTE | 2023-01-20 07:10 | NUR ---
SHIFT SUMMARY PT IS HERE POD#1 FOR A RIGHT TOTAL KNEE. PT WAS ABLE TO GET OOB LAST NIGHT AND AMBULATED A FEW STEPS IN THE ROOM AND WAS STEADY THROUGHOUT. PT'S PAIN MEDICATED PER EMAR. PT DID HAVE A BP THAT WAS LOW (92/76), AND IV PAIN MEDS WERE HELD. THE BP TAKEN AFTER THIS SOFT BP EPISODE WAS BETTER (108/58) WITH NO OTHER ACUTE EVENTS NOTED. PT ALSO PLACED ON 1L NC OF OXYGEN FOR A PULSE OX READING IN THE MID 80'S. ASIDE FROM THESE INSTANCES, VITAL SIGNS HAVE BEEN STABLE. BED IS IN LOWEST POSITION, CALL LIGHT IS WITHIN REACH.
[2023-01-20 07:26] VITALS: BP 146/93
[2023-01-20 07:27] VITALS: BP 153/64
--- NOTE | 2023-01-20 11:56 | NUR ---
DISCHARGE SUMMARY POD1 R TKA, A/OX4, VSS, TOLERATING PO, PAIN MANAGED PER EMAR, AMBULATING WELL, VOIDING INDEPENDENTLY, DRESSING TO RIGHT KNEE C/D/I, NO REDNESS NOTED AROUND THE DRESSING. IV ACCESS REMOVED PRIOR TO DISCHARGE. DISCUSSED DISCHARGE INFORMATION WITH HER INCLUDING HOME CARE, MEDICATIONS, AND FOLLOW UP APPOINTMENTS. NO QUESTIONS AT THIS TIME, PT ESCORTED OUT VIA WC TO PRIVATE AUTO TO GO HOME WITH ALL PERSONAL POSSESSIONS.
== END 2023-01-20 11:00 | disposition home or self-care (01) ==
LOC: ORSCMMR 11:09 → SURS 18:17 → ORSCMMR 01-20 11:00
PROVIDERS: Orthopaedic Surgery
PROC: 0SRC0J9 Replacement of Right Knee Joint with Synthetic Substitute, Cemented, Open Approach (ICD-10-PCS; principal; 2023-01-19 12:30)
DX: M17.11 Unilateral primary osteoarthritis, right knee (principal); I25.10 Atherosclerotic heart disease of native coronary artery without angina pectoris; F32.A Depression, unspecified; M79.7 Fibromyalgia; K21.9 Gastro-esophageal reflux disease without esophagitis; E78.5 Hyperlipidemia, unspecified; I10 Essential (primary) hypertension; I25.2 Old myocardial infarction; Z79.82 Long term (current) use of aspirin; Z79.899 Other long term (current) drug therapy; Z87.891 Personal history of nicotine dependence
CPT/HCPCS: 36415; 73560-RT; 80048; 85025; 97110; 97116; 97162; 97530; A9270; C1713; C1776; J0171; J0690; J0735; J1170; J1885; J2250; J2371; J2704; J2795; J3010; J3370; J7030; J7120

== ENCOUNTER 2023-02-28 18:22 | Emergency (ER) | payer OTHER ==
[~2023-02-28] VITALS: Ht 152.4 cm; Wt 81.7 kg
[2023-02-28] MEDS ORDERED: CEPH500 PO (21:56)
[2023-02-28 22:34] VITALS: BP 195/89
== END 2023-02-28 22:34 | disposition home or self-care (01) ==
LOC: ER 18:22
DX: T81.31XA Disruption of external operation (surgical) wound, not elsewhere classified, initial encounter (principal); Z96.651 Presence of right artificial knee joint; Z87.891 Personal history of nicotine dependence; I10 Essential (primary) hypertension; I25.10 Atherosclerotic heart disease of native coronary artery without angina pectoris; I25.2 Old myocardial infarction; K21.9 Gastro-esophageal reflux disease without esophagitis; M19.90 Unspecified osteoarthritis, unspecified site; Z95.9 Presence of cardiac and vascular implant and graft, unspecified; Z86.14 Personal history of Methicillin resistant Staphylococcus aureus infection; W18.09XA Striking against other object with subsequent fall, initial encounter; Y92.009 Unspecified place in unspecified non-institutional (private) residence as the place of occurrence of the external cause; Y93.01 Activity, walking, marching and hiking
CPT/HCPCS: 12001; 73562-RT; 96372-59; 99283-25; A9270; J1170

== ENCOUNTER 2024-08-22 10:33 | Day surgery (SDC) | payer OTHER ==
[2024-08-22] VITALS (22 sets, daily range): BP systolic 81–145; BP diastolic 41–106
[~2024-08-22] VITALS: Ht 152.4 cm; Wt 82.7 kg
[~2024-08-22 10:33] MED LIST changes: +BUTALBITAL-ASA1 EACH PO; +CEPH500 PO; +QUETIAPINE FUM400 M2 PO
[2024-08-22] MEDS ORDERED: NS 1,000 ML IV SCH (10:45)
[2024-08-22] MEDS ORDERED: Chlorhexidine Mouth Care 15 ML UDC MT SCH (10:45)
[2024-08-22] MEDS ORDERED: Ropivacaine 0.5% HCl/Pf 123.125 MG,EPINEPHrine HCL 0.25 MG,Ketorolac Tromethamine 15 MG... INFIL SCH (10:45)
[2024-08-22] MEDS ORDERED: Tranexamic Acid 100 ML IV SCH (10:45)
[2024-08-22] MEDS ORDERED: CeFAZolin Sodium 2,000 MG in NS 100 ML IV SCH ×2 (10:45→22:00)
--- NOTE | 2024-08-22 11:41 | NUR ---
PT BROUGHT TO DAY SURGERY. AMBULATES SLOWLY WITH CANE. VOIDED. PT MADE READY FOR SURGERY. VSS, IV RIGHT HAND TKO W/NACL.PT NOTED TO HAVE LOW SODIUM. CHEM 8 DRAWN AND SENT STAT. ESHA GALLEGOS, GREG VAIL, AND SAVANNAH ON. BELONGINGS UNDER BED. HISTORY, MEDS, AND ALLERGIES REVIEWED. WILL AWAIT LAB RESULTS AND REPORT FINDINGS TO ACP. REPORT TO BE GIVEN TO CIRCULATING MAO.
--- NOTE | 2024-08-22 12:19 | NUR ---
NA+ [address] ANDRES.
[2024-08-22] MEDS ORDERED: Bupivacaine 0.5% Inj 10 ML Vial ONE (12:26)
[2024-08-22] MEDS ORDERED: HYDROmorphone HCl/Pf 1MG SYR ONE ×2 (12:33→17:03)
[2024-08-22] MEDS ORDERED: Dexamethasone Sod Phos 10 MG/ML 1ML VIAL ONE (12:34)
[2024-08-22] MEDS ORDERED: Ketorolac Tromethamine 30mg Vial ONE ×2 (12:34→18:20)
[2024-08-22] MEDS ORDERED: Ondansetron HCl 2 MG / ML 2ML Vial ONE (12:34)
[2024-08-22 13:15] LABS: Anion Gap 5.0 mmol/L (3-11); Blood Urea Nitrogen 29.0 mg/dL (8-24); CO2, Blood 29.0 mmol/L (21-32); Calcium, Blood 9.2 mg/dL (8.5-10.1); Chloride, Blood 102.0 mmol/L (98-108); Creatinine, Blood 0.78 mg/dL (0.40-1.00); Glucose, Blood 94.0 mg/dL (70-99); Potassium, Blood 4.1 mmol/L (3.5-5.5); Sodium, Blood 132.0 mmol/L (136-145)
[2024-08-22] MEDS ORDERED: Metoclopramide HCl 5MG / ML 2ML Vial IV PRN (13:30)
[2024-08-22] MEDS ORDERED: Magnesium Hydroxide Conc 10 ML UDC PO PRN (13:30)
[2024-08-22] MEDS ORDERED: Prochlorperazine Edisylate 10 mg Vial IV PRN (13:35)
[2024-08-22] MEDS ORDERED: Ondansetron HCl 2 MG / ML 2ML Vial IV PRN ×2 (13:35→17:35)
[2024-08-22] MEDS ORDERED: HYDROmorphone HCl/Pf 1MG SYR IV PRN ×2 (13:40→17:35)
[2024-08-22] MEDS ORDERED: Aspirin/Caffeine/Butalbital 1 CAP PO PRN (13:55)
[2024-08-22] MEDS ORDERED: Phenylephrine HCl 100 MCG/ML-NS 10MLSYR (1MG/10ML) ONE (14:20)
[2024-08-22] MEDS ORDERED: FentaNYL Citrate 50 MCG/ML 2 ML Injection IV PRN ×3 (17:35)
[2024-08-22] MEDS ORDERED: Albuterol 2.5 MG/3 ML VIAL INH PRN (17:35)
[2024-08-22] MEDS ORDERED: Ketorolac Tromethamine 15mg Vial IV SCH (18:00)
[2024-08-22] MEDS ORDERED: FentaNYL Citrate 50 MCG/ML 2 ML Injection ONE (18:52)
[2024-08-22] MEDS ORDERED: Latanoprost 0.005% Opth Soln 2.5 ML BOTHEYES SCH (21:00)
[2024-08-23 00:26] VITALS: BP 103/53
[2024-08-23 04:31] VITALS: BP 105/53
--- NOTE | 2024-08-23 05:34 | NUR ---
SHIFT SUMMARY PT S/P LEFT HIP REVISION, PT POST OP AT SHIFT CHANGE. PT HAS BEEN PAINFUL THIS SHIFT, PAIN MANAGED PER EMAR. SURGICAL SITE WNL. PT HAS BEEN UP AND AMBULATING, AND HAS VOIDED. PLAN IS FOR DISCHARGE TODAY. BED IN LOWEST POSITION, CALL LIGHT WITHIN REACH.
[2024-08-23 07:09] LABS: BASOPHILS ABSOLUTE AUTO 0.03 K/mm3 (0.00-0.23); BASOPHILS PERCENT AUTO 0 % (0-2); EOSINOPHILS ABSOLUTE AUTO 0.01 K/mm3 (0.00-0.68); EOSINOPHILS PERCENT AUTO 0 % (0-6); Hematocrit 31.7 % (33.0-51.0); Hemoglobin 10.4 g/dL (11.5-16.0); IMMATURE GRAN ABSOLUTE AUTO 0.07 K/mm3 (0.00-0.10); IMMATURE GRAN PERCENT AUTO 1 % (0-1); LYMPHOCYTES ABSOLUTE AUTO 1.16 K/mm3 (0.84-5.20); LYMPHOCYTES PERCENT AUTO 11 % (21-46); MONOCYTES ABSOLUTE AUTO 0.76 K/mm3 (0.16-1.47); MONOCYTES PERCENT AUTO 7 % (4-13); Mean Corpuscular HGB Conc 32.8 g/dL (31.5-36.5); Mean Corpuscular Volume 95 fL (80-100); NEUTROPHILS ABSOLUTE AUTO 9.03 K/mm3 (1.96-9.15); NEUTROPHILS PERCENT AUTO 82 % (41-73); NRBC ABSOLUTE 0.00 K/mm3 (0.00-0.02); NRBC Auto 0.0 /100 WBC (0.0-0.2); Platelet Count 220 K/mm3 (150-400); RDW Coefficient Variation 14.9 % (11.7-14.2); RDW Standard Deviation 52.1 fL (35.1-46.3)
[2024-08-23 07:36] VITALS: BP 117/64
[2024-08-23 07:41] LABS: Anion Gap 9.0 mmol/L (3-11); Blood Urea Nitrogen 29.0 mg/dL (8-24); CO2, Blood 25.0 mmol/L (21-32); Calcium, Blood 8.6 mg/dL (8.5-10.1); Chloride, Blood 100.0 mmol/L (98-108); Creatinine, Blood 0.76 mg/dL (0.40-1.00); Glucose, Blood 110.0 mg/dL (70-99); Potassium, Blood 4.4 mmol/L (3.5-5.5); Sodium, Blood 130.0 mmol/L (136-145)
[2024-08-23] MEDS ORDERED: DESVENLAFAXINE PO SCH (09:00)
[2024-08-23] MEDS ORDERED: ASPI81CH PO (09:26)
--- NOTE | 2024-08-23 11:52 | NUR ---
ASSUMPTION ASSUMED CARE OF PT @0700. AXO4. TOLERATE BREAKFAST WELL. TALKATIVE WITH STAFF. DRESSING CDI TO L HIP. POLARPAK IN PLACE. PG PATENT, PULLED OUT PRE DC. PT/OT OK'D FOR DC. DC INSTRUCTIONS PROVIDED AT 1153. AWAITING PT'S RIDE TO ARRIVE FOR DEPARTURE.
--- NOTE | 2024-08-23 13:23 | NUR ---
DAUGHTER HERE. PT BEING WHEELED OUT VIA WHEELCHAIR. NO ACUTE CHANGES SINCE PREVIOUS NOTE. PT WITH ALL BELONGINGS.
== END 2024-08-23 13:29 | disposition home or self-care (01) ==
LOC: UNDOADMIN 10:33 → SURS 10:33 → ORSCMMR 10:33 → EDSTATUS 11:00 → SURS 15:58 → ORSCMMR 08-23 13:29 → SURS 08-23 13:29
PROVIDERS: Orthopaedic Surgery
PROC: 0SRS03Z Replacement of Left Hip Joint, Femoral Surface with Ceramic Synthetic Substitute, Open Approach (ICD-10-PCS; 2024-08-22)
PROC: 0SPB09Z Removal of Liner from Left Hip Joint, Open Approach (ICD-10-PCS; 2024-08-22)
PROC: 0SUS09Z Supplement Left Hip Joint, Femoral Surface with Liner, Open Approach (ICD-10-PCS; 2024-08-22)
PROC: 0SPS0JZ Removal of Synthetic Substitute from Left Hip Joint, Femoral Surface, Open Approach (ICD-10-PCS; principal; 2024-08-22 11:00)
DX: T84.031A Mechanical loosening of internal left hip prosthetic joint, initial encounter (principal); Y79.2 Prosthetic and other implants, materials and accessory orthopedic devices associated with adverse incidents; F32.A Depression, unspecified; I10 Essential (primary) hypertension; I25.10 Atherosclerotic heart disease of native coronary artery without angina pectoris; Z96.651 Presence of right artificial knee joint; Z95.5 Presence of coronary angioplasty implant and graft; E66.9 Obesity, unspecified; Z68.35 Body mass index [BMI] 35.0-35.9, adult; I25.2 Old myocardial infarction; Z87.891 Personal history of nicotine dependence; Z79.899 Other long term (current) drug therapy
CPT/HCPCS: 36415; 72170; 73501; 80048; 82435; 84132; 84295; 85025; 94760; 97116; 97161; 97165; 97530; 97535; A9270; C1713; C1776; J0165; J0690; J0735; J1100; J1171; J1885; J2371; J2405; J2704; J2795; J3010; J7030

== ENCOUNTER 2025-01-01 16:58 | Emergency (ER) | payer OTHER ==
[~2025-01-01] VITALS: Ht 152.4 cm; Wt 83.9 kg
[~2025-01-01 16:58] MED LIST changes: +ASPI81CH PO
[2025-01-01 18:02] LABS: BASOPHILS ABSOLUTE AUTO 0.12 K/mm3 (0.00-0.23); BASOPHILS PERCENT AUTO 1 % (0-2); EOSINOPHILS ABSOLUTE AUTO 0.47 K/mm3 (0.00-0.68); EOSINOPHILS PERCENT AUTO 6 % (0-6); Hematocrit 37.7 % (33.0-51.0); Hemoglobin 12.0 g/dL (11.5-16.0); IMMATURE GRAN ABSOLUTE AUTO 0.02 K/mm3 (0.00-0.10); IMMATURE GRAN PERCENT AUTO 0 % (0-1); LYMPHOCYTES ABSOLUTE AUTO 2.90 K/mm3 (0.84-5.20); LYMPHOCYTES PERCENT AUTO 34 % (21-46); MONOCYTES ABSOLUTE AUTO 0.82 K/mm3 (0.16-1.47); MONOCYTES PERCENT AUTO 10 % (4-13); Mean Corpuscular HGB Conc 31.8 g/dL (31.5-36.5); Mean Corpuscular Volume 93 fL (80-100); NEUTROPHILS ABSOLUTE AUTO 4.19 K/mm3 (1.96-9.15); NEUTROPHILS PERCENT AUTO 49 % (41-73); NRBC ABSOLUTE 0.00 K/mm3 (0.00-0.02); NRBC Auto 0.0 /100 WBC (0.0-0.2); Platelet Count 267 K/mm3 (150-400); RDW Coefficient Variation 14.6 % (11.7-14.2); RDW Standard Deviation 50.2 fL (35.1-46.3)
[2025-01-01 18:56] LABS: Alanine Aminotransfer (ALT/SGP 23.0 U/L (12-78); Albumin, Blood 3.8 g/dL (3.4-5.0); Albumin/Globulin Ratio 1.0 (0.8-1.8); Anion Gap 7.0 mmol/L (3-11); Aspartate Aminotrans (AST/SGOT 23.0 U/L (12-37); Bilirubin, Total 0.2 mg/dL (0.1-1.0); Blood Urea Nitrogen 17.0 mg/dL (8-24); CO2, Blood 26.0 mmol/L (21-32); Calcium, Blood 8.7 mg/dL (8.5-10.1); Chloride, Blood 101.0 mmol/L (98-108); Creatinine, Blood 0.61 mg/dL (0.40-1.00); Globulin, Blood 3.7 g/dL (2.2-4.0); Glucose, Blood 92.0 mg/dL (70-99); Potassium, Blood 4.4 mmol/L (3.5-5.5); Sodium, Blood 130.0 mmol/L (136-145); Total Protein, Blood 7.5 g/dL (6.4-8.2)
[2025-01-01] MEDS ORDERED: Ketorolac Tromethamine 15mg Vial IV ONE (19:15)
[2025-01-01] MEDS ORDERED: FentaNYL Citrate 50 MCG/ML 2 ML Injection IV ONE (20:00)
[2025-01-01 20:13] VITALS: BP 185/89
== END 2025-01-01 20:40 | disposition home or self-care (01) ==
LOC: ER 16:58
PROVIDERS: Physician Assistant
DX: S09.90XA Unspecified injury of head, initial encounter (principal); I10 Essential (primary) hypertension; I25.10 Atherosclerotic heart disease of native coronary artery without angina pectoris; K21.9 Gastro-esophageal reflux disease without esophagitis; I25.2 Old myocardial infarction; Z87.891 Personal history of nicotine dependence; Z88.8 Allergy status to other drugs, medicaments and biological substances; Z79.82 Long term (current) use of aspirin; Z79.899 Other long term (current) drug therapy; Z59.89 Other problems related to housing and economic circumstances; W18.30XA Fall on same level, unspecified, initial encounter
CPT/HCPCS: 36415; 70450; 80053; 85025; 93005; 93010; 96374; 96375; 99284-25; A9270; J1885; J3010